=== PATIENT | male | born 1985 | race Two or more races ===

== ENCOUNTER 2022-03-05 19:09 | Emergency (ER) | payer MEDICAID ==
[~2022-03-05] VITALS: Ht 172.7 cm; Wt 111.0 kg
[2022-03-05 22:12] VITALS: BP 149/88
[2022-03-05] MEDS ORDERED: KETOROLAC TROMETH 60MG/2ML VIAL IM ONE (23:15)
== END 2022-03-06 00:15 | disposition home or self-care (01) ==
LOC: ER 19:09
DX: G43.909 Migraine, unspecified, not intractable, without status migrainosus (principal)
CPT/HCPCS: 70450; 96372; 99284; J1885